=== PATIENT | female | born 2000 | race Caucasian/White ===

== ENCOUNTER 2018-05-20 03:08 | Emergency (ER) | payer BC ==
[2018-05-20 03:15] VITALS: BP 132/91; PULSE 89; RESP 18; TEMP 98.5
[2018-05-20] MEDS ORDERED: ACETAMINOPHEN TAB 325 MG TAB PO STA (03:29)
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
== END 2018-05-20 03:47 | disposition home or self-care (01) ==
LOC: EC 03:08
DX: S01.01XA Laceration without foreign body of scalp, initial encounter (principal); W03.XXXA Other fall on same level due to collision with another person, initial encounter; Y92.89 Other specified places as the place of occurrence of the external cause
CPT/HCPCS: 99283

== ENCOUNTER → 2021-05-27 | Outpatient (CLI) | payer BC ==
[2021-05-27 15:21] LABS: Basophils # (A) 0.11 X 10*3/uL (0.00-0.10); Eosinophils # (A) 0.74 X 10*3/uL (0.04-0.35); Eosinophils % (A) 13.7 %; HCT 39.1 % (37.2-46.3); HGB 13.3 g/dL (12.0-15.0); Lymphocytes # (A) 1.19 X 10*3/uL (0.90-5.00); MCH 32.1 pg (27.0-32.0); MCV 94.4 fL (80.0-97.0); Mean Platelet Volume 10.1 fL (9.5-12.2); Monocytes # (A) 0.43 X 10*3/uL (0.20-1.00); Monocytes % (A) 7.9 %; Neutrophils # (A) 2.93 X 10*3/uL (1.80-7.70); Neutrophils % (A) 54.2 %; Platelet Count 288 X 10*3/uL (140-440); RBC 4.14 X 10*6/uL (4.10-5.20); RDW 11.2 % (11.5-14.5); WBC 5.41 X 10*3/uL (4.50-10.00)
[2021-05-27 17:49] LABS: African American GFR (CKD) 142.5 (60.0-200.0); Albumin 4.7 g/dL (3.80-4.90); Albumin/Globulin Ratio 1.74 (1.60-3.17); Anion Gap 11.2 mmol/L (4.00-12.00); BUN/Creat Ratio 15.71 Ratio (12.00-20.00); Calcium 9.3 mg/dL (8.7-10.3); Carbon Dioxide 21.8 mmol/L (21.6-31.8); Chol/HDL Ratio 2.77; Globulin 2.7 g/dL (1.6-3.3); LDL Cholesterol,Calculated 86.4 mg/dL (0.0-131.0); Potassium 3.9 mmol/L (3.5-5.5); Total Bilirubin 0.6 mg/dL (0.2-1.2); Total Protein 7.4 g/dL (6.2-8.2); VLDL Calculation 12.6 mg/dL (5.00-40.00)
== END | disposition home or self-care (01) ==
LOC: LABWHC1 11:44
PROVIDERS: ATTEND Family Medicine
DX: Z13.220 Encounter for screening for lipoid disorders (principal); E56.9 Vitamin deficiency, unspecified; R41.840 Attention and concentration deficit
CPT/HCPCS: 36415; 80053; 80061; 82607; 84443; 85025

== ENCOUNTER → 2024-01-06 | Outpatient (CLI) | payer BC ==
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
== END | disposition home or self-care (01) ==
LOC: RADUSWWP 16:01
PROVIDERS: ATTEND Family Medicine
DX: N94.10 Unspecified dyspareunia (principal); N83.201 Unspecified ovarian cyst, right side
CPT/HCPCS: 76830